=== PATIENT | female | born 1990 | race Two or more races ===

== ENCOUNTER 2017-11-07 12:43 | Emergency (ER) | payer MEDICAID ==
[~2017-11-07] VITALS: Ht 162.6 cm; Wt 81.6 kg
[2017-11-07 15:18] LABS: Basophils # (auto) 0 uL; Basophils % (auto) 0.1 % (0.0-2.0); Eosinophils # (auto) 0 uL; Hematocrit 32.9 % (36.0-46.0); Hemoglobin 11.4 g/dL (12.2-16.2); Lymphocytes # (auto) 0.5 uL; Lymphocytes % (auto) 4.3 % (10.0-50.0); Mean Corpuscular Hgb Conc. 34.8 g/dL (32.0-36.0); Monocytes # (auto) 1.2 uL; Monocytes % (auto) 11.1 % (0.0-12.0); Neutrophils % (auto) 84.5 % (37.0-80.0); Nucleated Red Blood Cells % 0.1 %; Platelet Count (auto) 115 10^3/uL (140-450); Red Blood Cells 3.57 10^6/uL (4.0-5.20); Red Cell Distribution Width 15.9 % (11.8-14.3); White Blood Cell 10.6 10^3/uL (4.4-10.8)
[2017-11-07 15:33] LABS: Bilirubin, Total 1.4 mg/dL (0.2-1.0); Calcium 8.6 mg/dL (8.5-10.1); Potassium 3.3 mmol/L (3.5-5.1)
[2017-11-07] MEDS ORDERED: SODIUM CHLORIDE 0.9% 1,000 ML IVB ONE (16:07)
[2017-11-07] MEDS ORDERED: PROMETHAZINE HCL 25 MG/ML 1ML IV PRN (16:15)
[2017-11-07 16:42] VITALS: BP 102/70
[2017-11-07 17:25] LABS: Urine Amorphous Crystal FEW /hpf (None Seen); Urine Bacteria NONE SEEN /hpf (None Seen); Urine Blood 2+ /uL (Negative); Urine Specific Gravity 1.009 (1.001-1.035); Urine WBC 111 /hpf (0 - 5); Urine WBC Clumps PRESENT /hpf (None Seen)
[2017-11-07] MEDS ORDERED: POTASSIUM CHL 10% (20 MEQ/15ML) 15ml ORAL SOLN PO ONE (17:30)
[2017-11-07] MEDS ORDERED: cefTRIAXone 1GM/10ml IVPUSH 10 ML IV ONE (17:45)
== END 2017-11-07 17:43 | disposition home or self-care (01) ==
LOC: ER 12:43
DX: N39.0 Urinary tract infection, site not specified (principal); E87.6 Hypokalemia; E46 Unspecified protein-calorie malnutrition; F17.210 Nicotine dependence, cigarettes, uncomplicated
CPT/HCPCS: 36415; 80053; 81001; 81025; 82150; 83690; 83735; 84443; 84702; 85025; 96361; 96374; 99284; J7030

== ENCOUNTER 2018-07-13 17:46 | Emergency (ER) | payer MEDICAID ==
[~2018-07-13] VITALS: Ht 160 cm; Wt 62.1 kg
[2018-07-13 18:08] VITALS: BP 115/73
[2018-07-13] MEDS ORDERED: cefTRIAXone SOD 1,000 MG VL IM ONE ×2 (19:00→19:15)
[2018-07-13] MEDS ORDERED: methylPREDNISolone SOD SUCC 125 MG/2 ML VL IM ONE ×2 (19:00→19:15)
== END 2018-07-13 19:40 | disposition home or self-care (01) ==
LOC: ER 17:49
DX: J06.9 Acute upper respiratory infection, unspecified (principal)
CPT/HCPCS: 96372; 99283; J0696; J2930

== ENCOUNTER 2023-03-28 02:47 | Emergency (ER) | payer MEDICAID ==
[~2023-03-28] VITALS: Ht 157.5 cm; Wt 66.5 kg
[2023-03-28 03:04] VITALS: BP 101/58; PULSE 124; RESP 18; O2SAT 99
[2023-03-28] MEDS ORDERED: ACETAMINOPHEN 500 MG TAB PO ONE (03:15)
[2023-03-28 03:22] LABS: Basophils # (auto) 0 10 ^3/uL (0-0.2); Basophils % (auto) 0.1 % (0.0-2.0); Eosinophils # (auto) 0 10 ^3/uL (0-0.8); Hematocrit 34.4 % (36.0-46.0); Hemoglobin 11.3 g/dL (12.2-16.2); Lymphocytes # (auto) 1.2 10 ^3/uL (0.4-5.4); Lymphocytes % (auto) 7.9 % (10.0-50.0); Mean Corpuscular Hemoglobin 25.6 pg (28.0-32.0); Mean Corpuscular Hgb Conc. 32.7 g/dL (32.0-36.0); Mean Corpuscular Volume 78.3 fL (80.0-100.0); Monocytes # (auto) 1.5 10 ^3/uL (0-1.3); Monocytes % (auto) 10.6 % (0.0-12.0); Neutrophils # (auto) 11.9 10 ^3/uL (1.6-8.6); Neutrophils % (auto) 81.4 % (37.0-80.0); Red Cell Distribution Width 17.1 % (11.8-14.3); White Blood Cell 14.6 10^3/uL (4.4-10.8)
[2023-03-28 03:36] VITALS: TEMP 101.8
[2023-03-28 03:38] LABS: Alanine Aminotransferase 13 U/L (7-40); Albumin 4.4 g/dL (3.2-4.8); Alkaline Phosphatase 91 U/L (46-116); Anion Gap 7 (5-15); Aspartate Aminotransferase 18 U/L (13-40); BUN/Creatinine Ratio 7.1 (10.0-20.0); Blood Urea Nitrogen 7 mg/dL (9-23); Carbon Dioxide 26 mmol/L (20-30); Chloride 97 mmol/L (98-107); Glucose 133 mg/dL (74-106); Lipase 47 U/L (12-53); Potassium 3.4 mmol/L (3.5-5.1); Sodium 130 mmol/L (136-145)
[2023-03-28 03:39] LABS: Total Protein 7.4 g/dL (5.7-8.2)
[2023-04-01] MEDS ORDERED: CIPR-273 PO (10:47)
== END 2023-03-28 07:28 | disposition left against medical advice (07) ==
LOC: ER 02:48
DX: R10.9 Unspecified abdominal pain (principal); R10.2 Pelvic and perineal pain; R11.2 Nausea with vomiting, unspecified; R50.9 Fever, unspecified; F17.210 Nicotine dependence, cigarettes, uncomplicated
CPT/HCPCS: 36415; 80053; 83690; 84702; 85025